=== PATIENT | male | born 1965 | race Caucasian/White ===

== ENCOUNTER → 2017-06-02 09:24 | Outpatient (CLI) | payer OTHER, SELFPAY ==
[2017-06-02 12:08] LABS: Cholesterol 133 mg/dL (200); Glucose 88 mg/dL (70-110); High Density Lipoprotein 36 mg/dL; Triglycerides 94 mg/dL; Very Low Density Lipoprotein 19 mg/dL (5-40)
== END | disposition home or self-care (01) ==
PROVIDERS: Visit Provider Family Medicine
DX: Z00.00 Encounter for general adult medical examination without abnormal findings (principal)
CPT/HCPCS: 36415; 80061; 82947

== ENCOUNTER → 2021-05-10 12:49 | Outpatient (CLI) | payer OTHER, SELFPAY ==
--- NOTE | 2021-05-10 12:53 | RAD_ITS ---
STUDY: X-RAY - ABDOMEN/PELVIS REASON FOR EXAM: Male, 55 years old. BLOATING TECHNIQUE: AP supine and upright views of the abdomen and pelvis. COMPARISON: None. FINDINGS: Normal visualized lung bases. There is an unremarkable bowel gas pattern. There is no demonstrated free abdominal air. The visualized liver, spleen and kidneys are grossly normal in size and morphology. Normal soft tissue structures. Normal visualized osseous structures. RAD/Abd Inc Decub and/or Erect IMPRESSION: Normal x-ray examination of the abdomen and pelvis. Electronically Signed: Jorge Padilla DO at 0:31 EDT Tel , Service support ,
[2021-05-10 12:58] LABS: Bacteria 0 SEEN /hpf (None Seen); Mucous, Urine 0 SEEN /hpf (<or=2+); Red Blood Cells-Urine 0 SEEN /hpf (0-5); Squamous Epithelial Cells - UA 0 SEEN /hpf (0-5); White Blood Cells 0 SEEN /hpf (0-5)
[2021-05-10 14:51] LABS: Color, Urine Yellow (Yellow); Glucose, Dipstick Normal (Normal); Ketone-Dipstick Negative (Negative); Leukocyte Esterase-Dipstick Negative /ul (Negative); Nitrite-Dipstick Negative (Negative); Occult Blood-Urine Negative /ul (Negative); Protein-Dipstick Negative (Negative); Specific Gravity, Urine 1.025 (1.002-1.030); Urine Bilirubin Dipstick Negative (Negative); Urine Clarity Sl. Cloudy (Clear); Urine Urobilinogen Normal (Normal)
[2021-05-10 14:52] LABS: Absolute Lymphocyte Count 1.98 X10^3/uL (0.83-4.51); Absolute Neutrophil Count 3.5 X10^3/uL (2.0-7.7); Basophil# 0.04 X10^3/uL; Basophil% 0.7 % (0-1); Eosinophil# 0.05 X10^3/uL; Eosinophils% 0.8 % (0-5); Hematocrit 44.8 % (40-54); Hemoglobin 15.3 g/dL (13.0-16.5); Lymphocyte # 1.98 X10^3/ul (0.83-4.51); Lymphocyte % 32.4 % (19-41); Mean Corp Hgb Conc 34.2 g/dL (32-36); Mean Corpuscular Hgb 31.7 pg (27.0-32.0); Mean Corpuscular Volume 92.9 fL (80-94); Mean Platelet Vol. 11.2 fl (6.2-12.0); Monocyte# 0.56 X10^3/uL; Monocyte% 9.2 % (0-10); NRBC Flagged by Analyzer 0 % (0-5); Neutrophil # 3.47 X10^3/uL (2.7-7.7); Neutrophil % 56.6 % (47-70); Platelet Count 208 K/mm3 (150-450); RBC Distribution Width SD 41.1 fl (35.1-43.9); Red Blood Count 4.82 M/mm3 (4.6-6.2); White Blood Count 6.1 K/mm3 (4.4-11.0)
[2021-05-10 15:01] LABS: Calcium Oxalate Crystals Ur 1+ /hpf (<or=2+)
[2021-05-10 15:02] LABS: Erythrocyte Sedimentation Rate 7 mm/hr (0-20)
[2021-05-10 15:15] LABS: AST(SGOT) 30 U/L (15-37); Alanine Aminotransfer ALT/SGPT 53 U/L (16-61); Albumin, Serum 3.9 g/dL (3.2-5.0); Alkaline Phosphatase 110 U/L (45-117); Anion Gap 6 (5-15); BUN 15 mg/dL (7-18); BUN/Creat Ratio 16.5 RATIO (10-20); Calcium,Total 9.5 mg/dL (8.5-10.1); Chloride 105 mmol/L (98-107); Creatinine, Serum 0.91 mg/dL (0.70-1.30); EST Glomerular Filtration Rate 93 mL/min (>60); Est Glom Filt Rate - Afr Amer 112 mL/min (>60); Glucose 103 mg/dL (74-106); Potassium 3.8 mmol/L (3.5-5.1); Protein, Total 7.9 g/dL (6.4-8.2); Sodium Level 139 mmol/L (136-145)
== END ==
PROVIDERS: PCP Family Medicine; Referring Provider Family Medicine; Visit Provider Family Medicine
DX: R14.0 Abdominal distension (gaseous) (principal)
CPT/HCPCS: 36415; 74019; 80053; 81001; 85025; 85652

== ENCOUNTER → 2024-08-25 | Outpatient (CLI) | payer OTHER, SELFPAY ==
[2024-08-25 14:56] LABS: Red Blood Cells-Urine 0 SEEN /hpf (0-5); Squamous Epithelial Cells - UA 0 SEEN /hpf (0-5); White Blood Cells 0 SEEN /hpf (0-5)
[2024-08-25 18:12] LABS: Color, Urine Yellow (Yellow); Glucose, Dipstick Normal (Normal); Ketone-Dipstick Negative (Negative); Leukocyte Esterase-Dipstick Negative /ul (Negative); Nitrite-Dipstick Negative (Negative); Occult Blood-Urine 25 /ul (Negative); Protein-Dipstick Negative (Negative); Specific Gravity, Urine 1.015 (1.002-1.030); Urine Bilirubin Dipstick Negative (Negative); Urine Clarity Clear (Clear); Urine Urobilinogen Normal (Normal)
[2024-08-25 18:19] LABS: Bacteria RARE /hpf (None Seen); Mucous, Urine RARE /hpf (<or=2+)
== END | disposition home or self-care (01) ==
LOC: MFPLAB 14:53
PROVIDERS: PCP Family Medicine; Referring Provider Family Medicine; Visit Provider Family Medicine
DX: R31.29 Other microscopic hematuria (principal); R30.0 Dysuria
CPT/HCPCS: 81001; 87077; 87086; 87088

== ENCOUNTER 2025-07-13 12:00 | Emergency (ER) | payer OTHER, SELFPAY ==
[2025-07-13 12:01] VITALS: BP 157/94; PULSE 74; RESP 24; TEMP 36.6; O2SAT 100; BMI 27.6
[2025-07-13 12:10] LABS: Hematocrit 44.7 % (40-54); Hemoglobin 15.5 g/dL (13.0-16.5); Immature Granulocytes Count 0.020 X10^3/uL (0.0-0.0); Mean Corp Hgb Conc 34.7 g/dL (32-36); Mean Corpuscular Volume 92.7 fL (80-94); Mean Platelet Vol. 10.4 fl (6.2-12.0); NRBC Flagged by Analyzer 0 % (0-5); Platelet Count 201 K/mm3 (150-450); RBC Distribution Width CV 11.9 % (11.6-14.6); RBC Distribution Width SD 41.0 fl (35.1-43.9); Red Blood Count 4.82 M/mm3 (4.6-6.2); White Blood Count 6.0 K/mm3 (4.4-11.0)
[2025-07-13 12:37] LABS: AST(SGOT) 24 U/L (<=37); Alanine Aminotransfer ALT/SGPT 17 U/L (<=46); Albumin, Serum 4.6 g/dL (3.5-5.0); Alkaline Phosphatase 104 U/L (40-129); Anion Gap 13 (5-15); BUN 12 mg/dL (4-19); BUN/Creat Ratio 10.7 RATIO (10-20); Calcium,Total 10.0 mg/dL (7.6-11.0); Carbon Dioxide 24.7 mmol/L (21.0-32.0); Chloride 99 mmol/L (98-108); Estimated Creatinine Clearance 82.07 ml/min (50-250); Globulin 2.8 g/dL (2.2-4.2); Glucose 186 mg/dL (70-99); Potassium 4.0 mmol/L (3.3-5.1)
--- NOTE | 2025-07-13 12:47 | CT_ITS ---
PROCEDURE: ABDOMEN/PELVIS WITHOUT CONT 07/13/2025 REASON FOR EXAM: FLANK PAIN TECHNIQUE: Procedure Code: CTABDPEL Modality: CT Procedure: ABDOMEN/PELVIS WITHOUT CONT Noncontrast technique limits evaluation of the abdominal and pelvic viscera. Coronal and Sagittal reconstruction series were provided. One or more dose reduction techniques were used (e.g., Automated exposure control, adjustment of the mA and/or kV according to patient size, use of iterative reconstruction technique). RADIATION DOSE SUMMARY: CTDlvol: 12.82 mGy DLP: 671.66 mGycm COMPARISON: None. FINDINGS: Lung bases: Clear. Liver: Unremarkable. Gallbladder: Unremarkable. No biliary dilation. Spleen: Unremarkable. Pancreas: Unremarkable. Adrenals: Unremarkable. Kidneys: 6 mm stone at the right ureteropelvic junction causing severe right hydronephrosis. No left hydronephrosis. Bladder: Unremarkable. Reproductive Organs: The prostate is enlarged measures 5.3 cm. Bowel: No bowel wall thickening. No bowel obstruction. Appendix: Unremarkable. Lymph nodes: No lymphadenopathy. Vasculature: Nausea. Peritoneum / Retroperitoneum: No free air or free fluid. Bones: No acute bony Mets. CT/Abdomen/Pelvis without Cont IMPRESSION: A 6 mm stone at the right ureteropelvic junction causing severe right hydroneph rosis. No left hydronephrosis. Reading Location: REPLACED BY [facility]
[2025-07-13] MEDS: 0.9% Normal Saline (1000mL) 1,000 ML 1000 ML IV (12:55)
[2025-07-13 13:22] LABS: Color, Urine Yellow (Yellow); Glucose, Dipstick 100 mg/dl (Normal); Ketone-Dipstick 5 mg/dl (Negative); Leukocyte Esterase-Dipstick Negative /ul (Negative); Nitrite-Dipstick Negative (Negative); Occult Blood-Urine 250 /ul (Negative); Protein-Dipstick 15 mg/dl (Negative); Specific Gravity, Urine 1.015 (1.002-1.030); Urine Bilirubin Dipstick Negative (Negative)
[2025-07-13 13:42] LABS: Mucous, Urine 1+ /hpf (<or=2+); Red Blood Cells-Urine 25-50 SEEN /hpf (0-5); Squamous Epithelial Cells - UA 0-5 SEEN /hpf (0-5)
[2025-07-13 14:00] VITALS: BP 158/68; PULSE 82; RESP 16; O2SAT 99
--- NOTE | 2025-07-13 15:26 | EX.ED.DYSGE1 ---
HPI History of Present Illness Chief Complaint: Flank Pain Informant: patient Onset/Context/Timing Onset: Today Context: Sudden Onset Timing: Continuous Quality: Sharp Location: Right flank Worsened by: Sitting upright Relieved by: Ice pack, prone position Narrative Narrative: Patient presents with right flank pain that began today. Patient states it began rather suddenly. Patient describes it as sharp. Patient states it is worse when he is sitting up. Patient states it is better with an ice pack and with laying prone. Patient states it has been constant since it started. Patient denies any fevers or chills. Patient denies any dysuria or hematuria. Patient denies any nausea or vomiting. Patient denies any prior history of kidney stones. PFSH PFSH Medical History no medical history no medical history Home Medications ?Medication ?Instructions ?Recorded ?Last Taken ?Type hydrocodone-acetaminophen 5-325mg 1 tab PO Q6H PRN PRN Pain 3 days 07/13/25 Unknown Rx 5mg-325mg #10 TABLETS Allergy/AdvReac Type Severity Reaction Status Date / Time No Known Allergies Allergy Verified 07/13/25 12:01 Family History no significant family his Surgical History no surgical history no surgical history Social History Smoking Status: Never smoker ROS ROS ED Constitutional Constitutional ED: Denies chills or fever(s) Eyes Eyes: Denies blurry vision or change in vision ENT ENT ED: Denies rhinorrhea or sore throat Cardiovascular Cardiovascular: Denies chest pain or palpitations Respiratory/Chest Respiratory/Chest: Denies cough or dyspnea Gastrointestinal Gastrointestinal: Denies nausea or vomiting Genitourinary Genitourinary ED: Denies dysuria or hematuria Musculoskeletal Musculoskeletal: Reports back pain; Denies neck pain Integumentary Denies abscess or rash Neurologic Neurologic: Denies headache(s) or weakness Allergic/Immunologic Allergic/Immunologic ED: Denies mouth swelling or urticaria EXAM Physical Exam Const Vital Signs: 07/13/25 12:01 07/13/25 14:00 07/13/25 15:44 Temperature 97.8 F 97.9 F Temperature Source Temporal Pulse Rate 74 82 80 Respiratory Rate 24 H 16 14 Blood Pressure 157/94 H 158/68 H 148/64 H Blood Pressure Mean 115 98 92 Pulse Ox 100 99 98 Oxygen Delivery Method Room Air Positive well nourished and well developed General Appearance ED: well developed and NAD HEENT Reports moist mucous membranes Neck supple and no JVD Resp normal respiratory effort and clear to auscultation bilaterally Cardio regular rate and regular rhythm GI non-tender and non-distended Palpation: soft Back/Spine General Back: CVA tenderness right Neuro oriented x3, CN's II-XII intact bilaterally and no sensory deficits noted Sensorium / Orientation: alert Motor Exam: strength 5/5 throughout Psych mental status grossly normal MDM MDM MDM Narrative Medical decision making narrative: Differential diagnosis includes ureteral calculus, pyelonephritis, electrolyte abnormality, colitis, and diverticulitis. CT scan of the abdomen and pelvis will be obtained to assess for ureteral calculus and colitis. CBC will be obtained to assess for leukocytosis and anemia. Comprehensive metabolic profile will be obtained to assess for electrolyte abnormality, hepatic function, and renal function. Urinalysis will be obtained to assess for urinary tract infection and hematuria. Lab Data Attestation: I reviewed the patient's lab results. Lab results narrative: CBC was reviewed and was within normal limits. Comprehensive metabolic profile was reviewed. Glucose was mildly elevated 186. The remainder is within normal limits. Urinalysis was reviewed. Occult blood was 250 with 25-50 red blood cells. There is 0-5 white blood cells and 0-5 epithelial cells. There is 1+ bacteria. Labs: Laboratory Results - last 24 hr 07/13/25 07/13/25 12:07 13:00 WBC 6.0 RBC 4.82 Hgb 15.5 Hct 44.7 MCV 92.7 MCH 32.2 H MCHC 34.7 RDW Std Deviation 41.0 RDW Coeff of Denise 11.9 Plt Count 201 MPV 10.4 Immature Gran % (Auto) 0.300 Neut % (Auto) 68.4 Lymph % (Auto) 23.0 [place] % (Auto) 7.3 Eos % (Auto) 0.3 Baso % (Auto) 0.7 Absolute Neuts (auto) 4.1 Absolute Lymphs (auto) 1.39 Nucleated RBC % 0 Sodium 137 Potassium 4.0 Chloride 99 Carbon Dioxide 24.7 Anion Gap 13 BUN 12 Creatinine 1.09 Estim Creat Clear Calc 82.07 Est GFR (MDRD) Non-Af 79 BUN/Creatinine Ratio 10.7 Glucose 186 H Calcium 10.0 Total Bilirubin 0.63 AST 24 ALT 17 Alkaline Phosphatase 104 Total Protein 7.4 Albumin 4.6 Globulin 2.8 Albumin/Globulin Ratio 1.6 Urine Color Yellow Urine Clarity Clear Urine pH 7.0 Ur Specific [place] 1.015 Urine Protein 15 H Urine Glucose (UA) 100 H Urine Ketones 5 H Urine Occult Blood 250 H Urine Nitrite Negative Urine Bilirubin Negative Urine Urobilinogen Normal Ur Leukocyte Esterase Negative Urine RBC 25-50 SEEN Urine WBC 0-5 SEEN Ur Squamous Epith Cells 0-5 SEEN Urine Bacteria 1+ Urine Mucus 1+ Radiography Diagnostic Testing: Clinical Impression(s) from Imaging Studies Abdomen/Pelvis CT 07/13/25 12:47 IMPRESSION: A 6 mm stone at the right ureteropelvic junction causing severe right hydronephrosis. No left hydronephrosis. Reading Location: [facility] CT scan of the abdomen and pelvis was obtained. There is a 6 mm stone at the right ureteropelvic junction causing right hydronephrosis. There is no bowel obstruction or perforation. This was interpreted by the radiologist. I also independently reviewed the images and noted the calculus at the proximal ureter. There is no free air or free fluid. Treatment and Re-Evaluation :: Patient was given IV fluids, morphine, and Zofran. Patient was advised of his findings. Patient was given a prescription for a short course of [place]. Patient was instructed to drink plenty of fluids. Patient was instructed to follow-up with his primary care physician in 5 to 7 days. Patient states he knows the urologist that he would like to follow-up with. Patient was also given a referral for Dr. Blanchard. Patient understood and was agreeable with the plan. All questions were answered. Discharge Plan Triage Chief Complaint: Flank Pain ED Provider: Chago Barcenas Dx/Rx/DC Orders Clinical Impression: Calculus of proximal right ureter, Acute right flank pain Instructions: ED Kidney Stone with Pain Prescriptions: New hydrocodone-acetaminophen 5-325 mg tablet 1 tab PO Q6H PRN PRN (Reason: Pain) 3 Days Qty: 10 0RF Primary Care Provider: Ed Thomas Referrals: KIMBERLEY LAZO MD [Non-Staff, Urology] - 3-5 Days Charli Blanchard MD [Med Staff - Active Staff, Urology] - 3-5 Days Ed Thomas MD [Primary Care Provider, [facility]] - 5-7 Days Print Language: Ukrainian Disposition Disposition: Home, Self Care Discharge Date/Time: 07/13/25 15:56
[2025-07-13 15:44] VITALS: BP 148/64; PULSE 80; RESP 14; TEMP 36.6; O2SAT 98
--- OUTSIDE RECORDS SUMMARY | 2025-07-13 19:50 | XMS RPT_ITS | CCD ---
Author Organization [facility] Care Team Providers Care Director Business Name Role Phone Ed Thomas MD Primary Care Provider [phone] Abe Ball Referring Unavailable Abe Ball Attending Unavailable Abe Ball Primary Care Unavailable Medications Completed/Discontinued Medications Medication Drug Class(es) Dates Sig (Normalized) Sig (Original) methylPREDNISolone 4 mg oral tablet (1 source) Corticosteroid Start: methylPREDNISolone (MEDROL, MOIRA,) 4 mg Dose-Pack Take by mouth per package instructions 1 Package 0 03/17/2022 Active Comment on above: Take by mouth per pa ckage instructions Problems Problem Classification Problem Date Documented Da te Episodic/Chronic Genitourinary symptoms and ill-defined conditions (1 source) Other microscopic hematuria; Translations: [Other microscopic hematuria] Onset: 12-21-2024 Episodic Other skin disorders (1 source) Localized swelling of left hand; Translations: [Localized swelling, mass and lump, left upper limb] Episodic Poisoning by nonmedicinal substances (1 source) Bee sting; Translations: [Toxic effect of venom of bees, accidental (unintentional), initial encounter] Episodic Results Test Name Value Interpretation Reference Range Facility COMPREHENSIVE METABOLIC PANE [facility] 06-07-2025 Albumin [Mass/Vol] 4.7 g/dL Normal 3.6-5.1 [facility] Comment on above: Performed By: #### 4 96, 5394, 36790, 2110 #### [facility] [address] [address] Packaging Sales: Kyler Lowry MD Albumin/Globulin [Mass ratio] 1.9 {ratio} Normal 1.0-2.5 [facility] Comment on above: Performed By: #### 4 96, 5363, 24305, 1620 #### [facility] of [address], [address] [place] [address] Packaging Sales: Kyler Lowry MD ALP [Catalytic activity/Vol] 89 U/L Normal 35-144 [facility] Comment on above: Performed By: #### 4 96, 5363, 33287, 7600 #### [facility] of [address], [address] [place] [address] Packaging Sales: Kyler Lowry MD ALT [Catalytic activity/Vol] 16 U/L Normal 9-46 [facility] Comment on above: Performed By: #### 4 96, 5363, 18034, 7600 #### [facility] of [address], [address] [place] [address] Packaging Sales: Kyler Lowry MD AST [Catalytic activity/Vol] 18 U/L Normal 10-35 [facility] Comment on above: Performed By: #### 4 96, 5363, 00736, 7600 #### [facility] of [address], [address] [place] [address] Packaging Sales: Kyler Lowry MD Bilirubin [Mass/Vol] 0.6 mg/dL Normal 0.2-1.2 [facility] Comment on above: Performed By: #### 4 96, 5363, 48825, 7600 #### [facility] of [address], [address] [place] [address] Packaging Sales: Kyler Lowry MD BUN/CREATININE RATIO SEE NOTE: Normal 6-22 [facility] Comment on above: Result Comment: Not Reported: BUN and Creatinine are within reference range. Performed By: #### 4 96, 5363, 49808, 7600 #### [facility] of [address], [address] [place] [address] Packaging Sales: Kyler Lowry MD Calcium [Mass/Vol] 9.6 mg/dL Normal 8.6-10.3 [facility] Comment on above: Performed By: #### 4 96, 5363, 73506, 7600 #### [facility] of [address], [address] [place] [address] Packaging Sales: Kyler Lowry MD Chloride [Moles/Vol] 103 mmol/L Normal 98-110 [facility] Comment on above: Performed By: #### 4 96, 5363, 84845, 7600 #### [facility] of [place] [address] Packaging Sales: Kyler Lowry MD CO2 [Moles/Vol] 29 mmol/L Normal 20-32 [facility] Comment on above: Performed By: #### 4 96, 5363, 14832, 7600 #### [facility] of [place] [address] Packaging Sales: Kyler Lowry MD Creatinine [Mass/Vol] 0.88 mg/dL Normal 0.70-1.30 [facility] Comment on above: Performed By: #### 4 96, 5363, 20750, 7600 #### [facility] of [place] [address] Packaging Sales: Kyler Lowry MD GFR/1.73 sq M.predicted among non-blacks MDRD (S/P/Bld) [Vol rate/Area] 100 mL/min/{1.73_m2} Normal > OR = 60 [facility] Comment on above: Performed By: #### 4 96, 5363, 23336, 7600 #### [facility] of [place] [address] Packaging Sales: Kyler Lowry MD Globulin (S) [Mass/Vol] 2.5 g/dL Normal 1.9-3.7 [facility] Comment on above: Performed By: #### 4 96, 5363, 13370, 7600 #### [facility] of [place] [address] Packaging Sales: Kyler Lowry MD Glucose [Mass/Vol] 98 mg/dL Normal 65-99 [facility] Comment on above: Result Comment: Fasting reference interval Performed By: #### 4 96, 5363, 85403, 7600 #### [facility] of [place] [address] [place] [address] Packaging Sales: Kyler Lowry MD Potassium [Moles/Vol] 3.6 mmol/L Normal 3.5-5.3 [facility] Comment on above: Performed By: #### 4 96, 5363, 55217, 7600 #### [facility] [place] [address] Packaging Sales: Kyler Lowry MD Protein [Mass/Vol] 7.2 g/dL Normal 6.1-8.1 [facility] Comment on above: Performed By: #### 4 96, 5363, 66264, 7600 #### [facility] [place] [address] Packaging Sales: Kyler Lowry MD Sodium [Moles/Vol] 139 mmol/L Normal 135-146 [facility] Comment on above: Performed By: #### 4 96, 5363, 18788, 7600 #### [facility] [place] [address] Packaging Sales: Kyler Lowry MD Urea nitrogen [Mass/Vol] 12 mg/dL Normal 7-25 [facility] Comment on above: Performed By: #### 4 96, 5363, 03465, 7600 #### [facility] [place] [address] Packaging Sales: Kyler Lowry MD HEMOGLOBIN A1con 06-07-2025 HbA1c (Bld) [Mass fraction] 5.2 % Normal <5.7 [facility] Comment on above: Result Comment: For the purpose of screening for the presence of diabetes: <5.7% Consistent with the absence of diabetes 5.7-6.4% Consistent with increased risk for diabetes (prediabetes) > or =6.5% Consistent with diabetes This assay result is consistent with a decreased risk of diabetes. Currently, no consensus exists regarding use of hemoglobin A1c for diagnosis of diabetes in children. According to [place] Diabetes Association (ADA) guidelines, hemoglobin A1c <7.0% represents optimal control in non- diabetic patients. Different metrics may apply to specific patient populations. Standards of Medical Care in Diabetes(ADA). Performed By: #### 4 96, 5363, 54042, 7600 #### [facility] [address], [address] [place] [address] Packaging Sales: Kyler Lowry MD LIPID PANEL, [facility] 11- Cholesterol [Mass/Vol] 190 mg/dL Normal <200 [facility] Comment on above: Order Comment: 0; 0; 0; 0 Performed By: #### 4 96, 5363, 98431, 7600 #### [facility] [address], [address] [place] [address] Packaging Sales: Kyler Lowry MD Cholesterol in HDL [Mass/Vol] 43 mg/dL Normal > OR = 40 [facility] Comment on above: Order Comment: 0; 0; 0; 0 Performed By: #### 4 96, 5363, 62918, 7600 #### [facility] [address], [address] [place] [address] Packaging Sales: Kyler Lowry MD Cholesterol in LDL [Mass/Vol] 127 mg/dL High [facility] Comment on above: Order Comment: 0; 0; 0; 0 Result Comment: Refe rence range: <100 Desirable range <100 mg/dL for primary prevention; <70 mg/dL for patients with CHD or diabetic patients with > or = 2 CHD risk factors. LDL-C is now calculated using the Anny calculation, which is a validated novel method providing better accuracy than the Friedewald equation in the estimation of LDL-C. Luis Alberto FLEMING et al. OFELIA. 2013;310(19): 4764-4415 (http://education.[employer]/faq/TQF153) Performed By: #### 4 96, 5363, 10918, 7600 #### [facility] [address], [address] [place] [address] Packaging Sales: Kyler Lowry MD Cholesterol.total/ Cholesterol in HDL [Mass ratio] 4.4 {ratio} Normal <5.0 [facility] Comment on above: Order Comment: 0; 0; 0; 0 Performed By: #### 4 96, 5363, 61957, 7600 #### [facility] [address], [address] [place] [address] Packaging Sales: Kyler Lowry MD NON HDL CHOLESTEROL 147 mg/dL (calc) High <130 [facility] Comment on above: Order Comment: 0; 0; 0; 0 Result Comment: For patients with diabetes plus 1 major ASCVD risk factor, treating to a non-HDL-C goal of <100 mg/dL (LDL-C of <70 mg/dL) is considered a therapeutic option. Performed By: #### 4 96, 5363, 76665, 7600 #### [facility] [address], [address] [place] [address] Packaging Sales: Kyler Lowry MD Triglyceride [Mass/Vol] 95 mg/dL Normal <150 [facility] Comment on above: Order Comment: 0; 0; 0; 0 Performed By: #### 4 96, 5363, 10832, 7600 #### [facility] [address], [address] [place] [address] Packaging Sales: Kyler Lowry MD PSA, TOTALon 06-07-2025 PSA, TOTAL 1.56 ng/mL Normal < OR = 4.00 [facility] Comment on above: Result Comment: The total PSA value from this assay system is standardized against the WHO standard. The test result will be approximately 20% lower when compared to the equimolar-standardized total PSA (Beronica Cristiana). Comparison of serial PSA results should be interpreted with this fact in mind. This test was performed using the Siemens chemiluminescent method. Values obtained from different assay methods cannot be used interchangeably. PSA levels, regardless of value, should not be interpreted as absolute evidence of the presence or absence of disease. Performed By: #### 4 96, 5363, 83216, 7600 #### [facility] [place] [address] Packaging Sales: Kyler Lowry MD Urine Cultureon 08-28-2024 [facility] Order Date: 08/25/24 Order Info: 630-4 - CUUR Below infection level. Beta hemolytic streptococcus [place] Count <1000 Normal [facility] Comment on above: Performed By: #### L 400.0001, M100.2200 #### [facility] [address] [place], [address] Urinalysis, Completeon 08-25 BACTERIA RARE Normal None Seen [facility] Comment on above: Order Comment: Order Date: 08/25/24 Order Info: [address] [place] [address] ANIMAL SHELTER MANAGER TO SPECIFY Performed By: #### L 400.0001, M100.2200 #### [facility] [address] [place], [address] Mucus Ql (Urine sed) RARE Normal [facility] Comment on above: Order Comment: Order Date: 08/25/24 Order Info: [address] [place] [address] ANIMAL SHELTER MANAGER TO SPECIFY Performed By: #### L 400.0001, M100.2200 #### [facility] [address] [place], [address] EPI,SQUAMOUS 0 SEEN Normal 0-5 [facility] Comment on above: Order Comment: Order Date: 08/25/24 Order Info: [address] [place] [address] ANIMAL SHELTER MANAGER TO SPECIFY Performed By: #### L 400.0001, M100.2200 #### [facility] [address] [place], [address] RBC 0 SEEN Normal 0-5 [facility] Comment on above: Order Comment: Order Date: 08/25/24 Order Info: [address] [place] [address] ANIMAL SHELTER MANAGER TO SPECIFY Performed By: #### L 400.0001, M100.2200 #### [facility] [address] [place], [address] WBC 0 SEEN Normal 0-5 [facility] Comment on above: Order Comment: Order Date: 08/25/24 Order Info: [address] [place] [address] ANIMAL SHELTER MANAGER TO SPECIFY Performed By: #### L 400.0001, M100.2200 #### [facility] [address] [place], [address] CNOVon 03-17-2022 CNOV Office Visit ([facility] ) ROCKANNIE NARVAEZ ([id number]) 1965 M Date Time Provider Department 03/17/22 11:35 AM MIGUELITO MITCHELL [facility] During your visit today, we recorded the following information about you: Temperature Pulse Respiration Blood pressure 98.4 degrees 86/minute 16/minute 109/61 Weight 102.2 kg Miguelito Mitchell MD 03/17/2022 12:38 PM Signed Annie Gutierreztobias is a 56 year old male who presents with Pain (Left hand pain/swelling/ beesting yesterday) and Head Pain Right-side 56-year-old male patient presented here complaint of left hand swelling secondary to a bee sting. Patient has a bee sting couple weeks ago was treated before with prednisone no other complaint. No past medical history on file. There is no problem list on file for this patient. Current Outpatient Medications Medication Sig Dispense Refill methylPREDNISolone (MEDROL, MOIRA,) 4 mg Dose-Pack Take by mouth per package instructions 1 Package 0 No current facility-administered medications for this visit. Social History Tobacco Use Smoking status: Never Smokeless tobacco: Never Substance Use Topics Alcohol use: Never Drug use: Never Alcohol Use: Never Tobacco Use: Never No family history on file. Review of Systems Skin: Positive for rash. All other systems reviewed and are negative. BP 109/61 Pulse 86 Temp (Src) 98.4 (Temporal) Resp 16 Wt 225 lb 6.4 oz (102.2kg) SpO2 96% Physical Exam Vitals and nursing note reviewed. HENT: Head: Normocephalic and atraumatic. Nose: Nose normal. Mouth/Throat: Mouth: Mucous membranes are moist. Eyes: Extraocular Movements: Extraocular movements intact. Pupils: Pupils are equal, round, and reactive to light. Cardiovascular: Rate and Rhythm: Normal rate and regular rhythm. Pulses: Normal pulses. Heart sounds: Normal heart sounds. Pulmonary: Effort: Pulmonary effort is normal. Breath sounds: Normal breath sounds. Neurological: Mental Status: He is alert. ASSESSMENT/PLAN: 1. Localized swelling on left hand - ICD9: 782.2, ICD10: R22.32 (primary diagnosis) Ice elevation Medrol Dosepak have patient follow-up as needed 2. Bee sting, accidental or unintentional, initial encounter - ICD9: 989.5, E905.3, ICD10: T63.441A Localized reaction symptomatic for treatment Miguelito Mitchell Referring Provider: SELF [200] Allergies As of Date: 03/17/2022 (No Known Allergies) Date Reviewed: 03/17/2022 Reviewed by: Miguelito Mitchell MD - Fully Assessed Reason for Visit: Pain [78] Cmt: Left hand pain/swelling/ beesting yesterday Head Pain Right-side [1372] Primary Visit Diagnosis:Localized swelling on left hand [R22.32] Other Visit Diagnosis:Bee sting, accidental or unintentional, initial encounter [T63.441A] Order(s):methylPREDNISo lone (MEDROL, MOIRA,) 4 mg Dose-PackTake by mouth per package instructionsDisp: 1 PackageRfl: 0 Prescriptions as of 03/17/2022 - methylPREDNISolone (MEDROL, MOIRA,) 4 mg Dose-Pack Take by mouth per package instructions Problem List As Of Date: 03/17/2022 (None) Prescriptions ordered this encounter Disp Refills Start End METHYLPREDNISOLONE 4 MG TABLETS IN A* 1 Pa* 0 03/17/2022 Sig: Take by mouth per package instructions Encounter Status:Closed by MIGUELITO MITCHELL on 03/17/22 [facility] Vital Signs Date Time Vital Sign Value Performing Clinician Faci lity 03-17-2022 12:23-0400 Body temperature 98.4 [degF] Miguelito Mitchell MD Work Phone: [facility] 03-17-2022 12:23-0400 Body weight 102.24 kg Miguelito Mitchell MD Work Phone: [facility] 03-17-2022 12:23-0400 Diastolic blood pressure 61 mm[Hg] Miguelito Mitchell MD Work Phone: [facility] 03-17-2022 12:23-0400 Heart rate 86 /min Miguelito Mitchell MD Work Phone: [facility] 03-17-2022 12:23-0400 Respiratory rate 16 /min Miguelito Mitchell MD Work Phone: [facility] 03-17-2022 12:23-0400 SaO2% (BldA) [Mass fraction] 96 % Miguelito Mitchell MD Work Phone: [facility] 03-17-2022 12:23-0400 Systolic blood pressure 109 mm[Hg] Miguelito Mitchell MD Work Phone: [facility] Encounters Encounter Date Encounter Type Care Provider Facility Start: 08-25-2024 End: 08-25-2024 [facility] Facility:[facility] Start: 03-17-2022 End: 03-17-2022 Patient encounter procedure Miguelito Mitchell MD Work Phone: [facility] Comment on above: Localized swelling o n left hand (Primary Dx); Bee sting, accidental or unintentional, initial encounter Plan of Treatment Date Care Activity Detail Author Start: 03-28-2022 Influenza vaccination INFLUENZA (#1) [facility] Start: 09-26-2017 SHINGRIX VACCINE (1 of 2) SHINGRIX V ACCINE (1 of 2) [facility] Start: 09-26-2012 COLOGUARD (FIT-DNA) COLOGUARD (FIT-D NA) [facility] Start: 09-26-2012 Colonoscopy COLONOSCOPY [facility] Start: 09-26-2012 COLORECTAL CANCER SCREENING COLORECTAL CANCER SCREENING [facility] Start: 09-26-[address] COLONOGRAPHY [facility] Start: 09-26-2012 DIABETES SCREEN DIABETES SCREEN [facility] Start: 09-26-2012 FECAL OCCULT BLOOD FECAL OCCULT BLOO D [facility] Start: 09-26-2012 SIGMOIDOSCOPY SIGMOIDOSCOPY [facility] Start: 09-26-2002 LIPID SCREEN LIPID SCREEN [facility] Start: 09-26-1986 Urine microalbumin profile DTAP,TDAP ,TD (1 - Tdap) [facility] Start: 09-26-1985 HEPATITIS C SCREENING HEPATITIS C SC REENING [facility] Start: 09-26-1985 HIV SCREENING HIV SCREENING [facility] Start: 1979 Adult depression scr eening assessment DEPRESSION SCREENING [facility] Start: 03-29-1968 COVID-19 VACCINE (#1) COVID-19 VACCI NE (#1) [facility] Start: 1965 HEPATITIS B (1 of 3 - 3-dose series) HEPATITIS B (1 of 3 - 3-dose series) [facility] Payers Date Payer Category Payer Self-pay 2024 Unknown [id number] 2019 [facility] Health [facility] [employer] [id number] 2019-Present [phone] [address] [place] [id number] PPO [id number] Unknown [id number] Social History Date Type Detail Facility [facility]: [facility] Start: 03-17-2022 Tobacco use and exposure Smoke less tobacco non-user [facility] Start: 03-17-2022 Alcohol intake Lifetime non-d mateus (finding) [facility] Start: 1965 Sex Assigned At Not on file C [facility] Start: 03-07-2022 End: 03-17-2022 Exposure to SARS-CoV-2 (event) Not sure [facility] Progress note 03-17-2022 Note Date & Type Note Facility 03-17-2022 Note HNO ID: [id number] Author: Miguelito Mitchell MD Service: ? Author Type: Physician Type: Progress Notes Filed: 03/17/2022 12:38 PM Note Text: Annie Jaffe is a 56 year old male who presents with Pain (Left hand pain/swelling/ beesting yesterday) and Head Pain Right-side 56-year-old male patient presented here complaint of left hand swelling secondary to a bee sting. Patient has a bee sting couple weeks ago was treated before with prednisone no other complaint. No past medical history on file. There is no problem list on file for this patient. Current Outpatient Medications Medication Sig Dispense Refill methylPREDNISolone (MEDROL, MOIRA,) 4 mg Dose-Pack Take by mouth per package instructions 1 Package 0 No current facility-administered medications for this visit. Social History Tobacco Use Smoking status: Never Smokeless tobacco: Never Substance Use Topics Alcohol use: Never Drug use: Never Alcohol Use: Never Tobacco Use: Never No family history on file. Review of Systems Skin: Positive for rash. All other systems reviewed and are negative. BP 109/61 Pulse 86 Temp (Src) 98.4 (Temporal) Resp 16 Wt 225 lb 6.4 oz (102.2kg) SpO2 96% Physical Exam Vitals and nursing note reviewed. HENT: Head: Normocephalic and atraumatic. Nose: Nose normal. Mouth/Throat: Mouth: Mucous membranes are moist. Eyes: Extraocular Movements: Extraocular movements intact. Pupils: Pupils are equal, round, and reactive to light. Cardiovascular: Rate and Rhythm: Normal rate and regular rhythm. Pulses: Normal pulses. Heart sounds: Normal heart sounds. Pulmonary: Effort: Pulmonary effort is normal. Breath sounds: Normal breath sounds. Neurological: Mental Status: He is alert. ASSESSMENT/PLAN: 1. Localized swelling on left hand - ICD9: 782.2, ICD10: R22.32 (primary diagnosis) Ice elevation Medrol Dosepak have patient follow-up as needed 2. Bee sting, accidental or unintentional, initial encounter - ICD9: 989.5, E905.3, ICD10: T63.441A Localized reaction symptomatic for treatment Miguelito Mitchell [facility] History of Present illness Narrative 03-17-2022 Miguelito Mitchell MD - 03/17/2022 12:37 PM EDT Note Date & Type Note Facility 03-17-2022 History of Presen t illness Narrative Annie Jaffe is a 56 year old male who presents with Pain (Left hand pain/swelling/ beesting yesterday) and Head Pain Right-side 56-year-old male patient presented here complaint of left hand swelling secondary to a bee sting. Patient has a bee sting couple weeks ago was treated before with prednisone no other complaint. No past medical history on file. There is no problem list on file for this patient. Current Outpatient Medications Medication Sig Dispense Refill methylPREDNISolone (MEDROL, MOIRA,) 4 mg Dose-Pack Take by mouth per package instructions 1 Package 0 No current facility-administered medications for this visit. Social History Tobacco Use Smoking status: Never Smokeless tobacco: Never Substance Use Topics Alcohol use: Never Drug use: Never Alcohol Use: Never Tobacco Use: Never No family history on file. Review of Systems Skin: Positive for rash. All other systems reviewed and are negative. BP 109/61 Pulse 86 Temp (Src) 98.4 (Temporal) Resp 16 Wt 225 lb 6.4 oz (102.2kg) SpO2 96% Physical Exam Vitals and nursing note reviewed. HENT: Head: Normocephalic and atraumatic. Nose: Nose normal. Mouth/Throat: Mouth: Mucous membranes are moist. Eyes: Extraocular Movements: Extraocular movements intact. Pupils: Pupils are equal, round, and reactive to light. Cardiovascular: Rate and Rhythm: Normal rate and regular rhythm. Pulses: Normal pulses. Heart sounds: Normal heart sounds. Pulmonary: Effort: Pulmonary effort is normal. Breath sounds: Normal breath sounds. Neurological: Mental Status: He is alert. ASSESSMENT/PLAN: 1. Localized swelling on left hand - ICD9: 782.2, ICD10: R22.32 (primary diagnosis) Ice elevation Medrol Dosepak have patient follow-up as needed 2. Bee sting, accidental or unintentional, initial encounter - ICD9: 989.5, E905.3, ICD10: T63.441A Localized reaction symptomatic for treatment Miguelito Mitchell documented in this encounter [facility] Evaluation note Note Date & Type Note Facility Evaluation note Diagnosis Localized swelling on left hand- Primary Bee sting, accidental or unintentional, initial encounter documented in this encounter [facility] Summary Purpose Family History No Family History Records FoundNo Family History Records FoundNo Family History Records Found Advance Directives No Advanced Directives Records FoundNo Advanced Directives Records FoundNo Advanced Directives Records Found Additional Source Comments Source Comments (unrecognize d section and content) In the event this informatio n is protected by the Federal Confidentiality of Alcohol and Drug Abuse Patient Records regulations: The Federal rules restrict any use of the information to criminally investigate or prosecute any alcohol or drug abuse patient.[facility] Reason for Visit (unrecogniz ed section and content) Reason Comments Pain Left hand pain/swell ing/ beesting yesterday Head Pain Right-side Care Teams (unrecognized sec tion and content) Director Business Relationship Specialty Start Date End Date Ed Thomas MD [address] [place] [address] PCP - General Family Practice 03/17/22 (unrecognized sect ion and content) No Status Records FoundNo Status Records FoundNo Status Records Found INFORMATION SOURCE (unrecogn ized section and content) DATE CREATED AUTHOR 03/21/2022 [facility] nt DATE CREATED AUTHOR AUTHOR'S ORGANIZ ATION 12/24/2024 [facility] DATE CREATED AUTHOR AUTHOR'S ORGANIZ ATION 06/08/2025 [facility] FOR RECORDS PERTAINING TO PATIENTS WHO ARE OR HAVE BEEN ENROLLED IN A CHEMICAL DEPENDENCY/SUBSTANCEABUSE PROGRAM, SOME INFORMATION MAY BE OMITTED. This clinical summary was aggregated from multiple sources. Caution should be exercised in using it in the provision of clinical care. This summary normalizes information from multiple sources, and as a consequence, information in this document may materially change the coding, format and clinical context of patient data. In addition, data may be omitted in some cases. CLINICAL DECISIONS SHOULD BE BASED ON THE PRIMARY CLINICAL RECORDS. [facility]. provides no warranty or guarantee of the accuracy or completeness of information in this document.
== END 2025-07-13 15:56 | disposition home or self-care (01) ==
PROVIDERS: Emergency Provider Emergency Medicine; PCP Family Medicine; Visit Provider Emergency Medicine
DX: N13.2 Hydronephrosis with renal and ureteral calculous obstruction (principal); R10.A1 Flank pain, right side
CPT/HCPCS: 74176; 80053; 81001; 85025; 96361; 96374; 96375; 99283; A4216; J2405